=== PATIENT | female | born 1955 | race Caucasian/White ===

== ENCOUNTER 2020-09-21 10:49 | Emergency (ER) | payer OTHER ==
[~2020-09-21] VITALS: Ht 154.9 cm; Wt 65.8 kg
[2020-09-21 11:09] VITALS: BP 193/69
--- NOTE | 2020-09-21 11:20 | NUR ---
51/[address]
--- NOTE | 2020-09-21 11:30 | NUR ---
PT DENIED CHEST XRAY, ERMD MADE AWARE
--- NOTE | 2020-09-21 12:02 | NUR ---
65 YEAR OLD PATIENT BIBA FOR HOLD; "SUBJECT SHARON IS RESTRAINED FROM [address] [facility]. SHE ATTEMPTED TO GET A HAMMER TO BREAK THE WINDOW AT THE RESIDENCE. SUBJECT SHARON BELIEVES SHE STILL LIVES AT THE RESIDENCE. SHE MEJIA SNOT HAVE FOOD, CLOTHING, OR TRANSPORTATION". DENIES DESIRE TO HARM SELF OR OTHERS. AO4, BREATHING EVEN AND UNLABORED, SKIN WARM AND DRY. BED IN LOWEST POSITION, LOCKED, X2 SIDERAILS UP. PMH - UNKNOWN ALLERGY - ERYTHROMYCIN
[2020-09-21 12:37] LABS: BASOPHILS % (AUTO) 0.5 % (0.0-2.0); EOSINOPHILS % (AUTO) 0.4 % (0.0-4.0); HEMATOCRIT 36.9 % (36-48); LYMPHOCYTES # (AUTO) 0.7 K/uL (2.5-16.5); LYMPHOCYTES % (AUTO) 12.1 % (20.5-51.1); MEAN CORPUSCULAR HEMOGLOBIN 25 pg (27-31); MEAN CORPUSCULAR HGB CONC 32 g/dL (33-37); MEAN CORPUSCULAR VOLUME 76.7 fL (80-94); MONOCYTES # (AUTO) 0.5 K/uL (0.8-1.0); MONOCYTES % (AUTO) 7.8 % (1.7-9.3); NEUTROPHILS # (AUTO) 4.7 K/uL (1.8-7.7); NEUTROPHILS % (AUTO) 79.2 % (42.2-75.2); PLATELET COUNT (AUTO) 189 K/uL (140-450); RED BLOOD CELL COUNT(AUTO) 4.82 MIL/uL (4.20-5.40); RED CELL DISTRIBUTION WIDTH 16.4 % (11.6-13.7)
[2020-09-21 12:40] LABS: ALBUMIN 3.5 g/dL (3.4-5.0); ANION GAP 13.1 (8-16); ASPARTATE AMINOTRANSFERASE 27 U/L (15-37); CARBON DIOXIDE 26.9 mmol/L (21-32); CHLORIDE 102 mmol/L (98-107); CREATININE 1.1 mg/dL (0.6-1.3); GFR ARICAN-AMERICAN 64 mL/min (>90); GLUCOSE 234 mg/dL (74-106); SODIUM SERUM 138 mmol/L (136-145); TOTAL BILIRUBIN 1.3 mg/dL (0.0-1.0); UREA NITROGEN, BLOOD 15 mg/dL (7-18)
[2020-09-21 12:43] LABS: SALICYLATE < 2.8 mg/dL (2.8-20.0)
[2020-09-21 12:44] LABS: ACETAMINOPHEN < 0.5 ug/ml (10-30)
--- NOTE | 2020-09-21 12:45 | NUR ---
PT STATES THAT SHE DOES NOT WANT THE LUNCH OFFERED, SAYS SHE IS FINE WITHOUT EATING
[2020-09-21 13:09] LABS: BARBITURATE, URINE NEGATIVE ng/ml (NEG <=200); BENZODIAZEPINE, URINE NEGATIVE ng/mL (NEG <=200); CANNABINOID, URINE NEGATIVE ng/mL (NEG <=50); COCAINE, URINE NEGATIVE ng/mL (NEG <=300); PHENCYCLIDINE SCREEN,URINE NEGATIVE ng/mL (NEG <=25)
--- NOTE | 2020-09-21 13:09 | NUR ---
Troponin 0.718--critical value received from lab. Dr Juan made aware.
[2020-09-21 13:10] LABS: OPIATE, URINE POSITIVE ng/mL (NEG <=2000)
[2020-09-21] MEDS ORDERED: ASPIRIN 81 MG TAB.CHEW PO ONE (13:10)
--- NOTE | 2020-09-21 13:36 | NUR ---
PT STATES SHE DOES NOT WANT MEDICATION OF ASPIRIN, DOES NOT LIKE THAT BRAND. ERMD MADE AWARE
--- NOTE | 2020-09-21 14:28 | NUR ---
PT ALERT AND AWAKE, BREATHING EVEN AND UNLABORED. NO DISTRESS NOTED.
--- NOTE | 2020-09-21 14:42 | NUR ---
PT DECLINED REPEAT OF BLOOD PRESSURE MEASUREMENTS, DOES NOT WANT VS TAKEN. ERMD MADE AWARE
--- NOTE | 2020-09-21 15:47 | NUR ---
PT STATES THAT SHE IS FEELING FINE, PT AOX4, BREATHING EVEN AND UNLABORED
--- NOTE | 2020-09-21 16:05 | NUR ---
PT REFUSED TO SIGN CONSENT FOR TRANSFER, PT IS ON HOLD. ERMD AND CHARGE NURSE AWARE, CONSENT SIGNED BY 2 RN.
--- NOTE | 2020-09-21 16:10 | NUR ---
Patient to be transferred to [facility]. Is being transferred due to higher level of care. Receiving facility has accepting physician and available space. ER physician has signed transfer form. Patient or responsible constitution party has agreed to transfer and signed form. Patient belongings inventoried and will be sent with patient. Copy of nursing notes, lab reports, EKG, Physicians Orders and X-rays to be sent with patient. Report called to Montserrat CANO at receiving facility. [facility] ambulance service has been called for transfer. ETA is 30mins.
--- NOTE | 2020-09-21 16:10 | NUR ---
PT REFUSES TO ALLOW ANYONE ACCOMPANY HER TO BATHROOM. PT IN BATHROOM NOW. WILL WAIT OUTSIDE DOOR UNTIL PT IS FINISHED.
--- NOTE | 2020-09-21 16:12 | NUR ---
PT BACK IN ROOM. WILL CONTINUE TO MONITOR.
--- NOTE | 2020-09-21 17:24 | NUR ---
PT ALERT AND AWAKE, BREATHING EVEN AND UNLABORED. NO DISTRESS NOTED.
--- NOTE | 2020-09-21 18:18 | NUR ---
[facility] at bedside for transfer of patient.
[2020-09-21 18:23] VITALS: BP 177/74
--- NOTE | 2020-09-22 21:09 | NUR ---
LATE ENTRY---Covid results received from lab. Results = Positive. Hard copy requested from lab and placed in infection controls mailbox.
== END 2020-09-21 18:18 | disposition designated cancer center or children's hospital (05) ==
LOC: MED 10:49
DX: I21.4 Non-ST elevation (NSTEMI) myocardial infarction (principal); Z20.822 Contact with and (suspected) exposure to COVID-19
CPT/HCPCS: 36415; 80053; 80305; 84484; 85025; 87426; 93005; 99291; G0480; G0482; U0003; 99285

== ENCOUNTER 2022-02-09 17:43 | Emergency (ER) | payer MEDICARE, MEDICAID ==
[~2022-02-09] VITALS: Ht 149.9 cm; Wt 74.8 kg
[2022-02-09 18:02] VITALS: BP 131/44
--- NOTE | 2022-02-09 18:18 | NUR ---
MICHAEL OTOOLE AT BEDSIDE EVALUATING PT
[2022-02-09] MEDS ORDERED: ELIMC TP (18:36)
[2022-02-09] MEDS ORDERED: BACTO TP (18:36)
--- NOTE | 2022-02-09 18:39 | NUR ---
Patient discharged with v/s stable. Written and verbal after care instructions given and explained. Patient alert, oriented and verbalized understanding of instructions. Wheel Chair Assisted with by caregiver. All questions addressed prior to discharge. ID band removed. Patient advised to follow up with PMD. Rx of ELEMITE, BACITRACIN given. Patient educated on indication of medication including possible reaction and side effects. Opportunity to ask questions provided and answered.
== END 2022-02-09 18:30 | disposition home or self-care (01) ==
LOC: MED 17:43
DX: R21 Rash and other nonspecific skin eruption (principal)
CPT/HCPCS: 99282; 99283

== ENCOUNTER 2022-05-27 13:40 | Emergency (ER) | payer OTHER, MEDICAID ==
[~2022-05-27] VITALS: Ht 157.5 cm; Wt 56.7 kg
[~2022-05-27 13:40] MED LIST: BACTO TP; ELIMC TP
[2022-05-27 14:01] VITALS: BP 123/62
--- NOTE | 2022-05-27 14:04 | NUR ---
TENT 1
[2022-05-27] MEDS ORDERED: predniSONE 20 MG TAB PO ONE (15:25)
[2022-05-27] MEDS ORDERED: IVER3TAB2 PO (15:41)
[2022-05-27] MEDS ORDERED: BEN50 PO (15:41)
[2022-05-27] MEDS ORDERED: PRED20TA5 PO (15:41)
[2022-05-27] MEDS ORDERED: ELIMC TP (15:41)
[2022-05-27 16:35] VITALS: BP 123/62
--- NOTE | 2022-05-27 16:35 | NUR ---
Patient discharged with v/s stable. Written and verbal after care instructions given and explained. Patient alert, oriented and verbalized understanding of instructions. Wheel Chair Assisted with by caregiver. All questions addressed prior to discharge. ID band removed. Patient advised to follow up with PMD. Rx of BENADRYL, ELIMITE, IVERMECTIN given. Patient educated on indication of medication including possible reaction and side effects. Opportunity to ask questions provided and answered.
== END 2022-05-27 16:32 | disposition home or self-care (01) ==
LOC: MED 13:40
DX: R21 Rash and other nonspecific skin eruption (principal); I10 Essential (primary) hypertension; E11.9 Type 2 diabetes mellitus without complications; Z79.4 Long term (current) use of insulin; Z79.899 Other long term (current) drug therapy
CPT/HCPCS: 99283; J7512; Q0163